=== PATIENT | female | born 1975 | race Caucasian/White ===

== ENCOUNTER 2017-11-20 11:12 | Emergency (ER) | payer BC ==
[2017-11-20] MEDS ORDERED: SODIUM CHLORIDE 0.9% 1,000 ML IV STA (12:16)
[2017-11-20] MEDS ORDERED: SODIUM CHLORIDE 0.9% 500 ML IV STA (12:16)
[2017-11-20] MEDS ORDERED: KETOROLAC 30 MG/ML 1 ML VIAL IVP STA (12:16)
--- NOTE | 2017-11-20 12:19 | ED ---
Back Pain HPI - General Chief Complaint: Back Pain/Injury Stated Complaint: Lower back pain Time Seen by Provider: 11/20/17 12:08 Source: patient, RN notes reviewed Limitations: no limitations - History of Present Illness Initial Comments: This is a 42-year-old female with a history of a bulging disc in one of her lower vertebrae also a history kidney stones and states she had the onset 1 week ago of right-sided flank pain seems to radiate down to the bladder area. She denies any fevers chills nausea vomiting sweats the pain is dull and achy 9/ 10 at this time in severity she's had no dysuria hematuria consultation diarrhea. She denies she was the cause is somewhat feels like her previous kidney stone which she does relate that she was sitting on the bowel a boat prior to the pain starting in having a lot of waves so she's not sure whether it could've been her back that was aggravated or not. It does hurt to flex her hip on the right side. No focal deficits. She has had a tubal ligation the past no other surgeries. No other modifying factors MD Complaint: back pain, other - Related Data Home Medications Medication Instructions Recorded Confirmed Ibuprofen [Motrin] 800 mg PO Q6HR PRN 11/20/17 11/20/17 Levothyroxine Sodium [Synthroid] 125 mcg PO HS 11/20/17 11/20/17 Methocarbamol [Robaxin] 500 mg PO BID PRN 11/20/17 11/20/17 traMADol HCL [Ultram] 50 mg PO TID 11/20/17 11/20/17 Previous Rx's Medication Instructions Recorded Cyclobenzaprine [Flexeril] 10 mg PO TID #14 tab 11/20/17 Ibuprofen 800 mg PO Q6HR PRN #20 tablet 11/20/17 Allergies Allergy/AdvReac Type Severity Reaction Status Date / Time morphine Allergy Rash/Hives Verified 11/20/17 12:23 Review of Systems ROS Statement: Those systems with pertinent positive or pertinent negative responses have been documented in the HPI. ROS Other: All systems not noted in ROS Statement are negative. Past Medical History Past Medical History: Thyroid Disorder Additional Past Medical History / Comment(s): kidney stones bulging disc History of Any Multi-Drug Resistant Organisms: None Reported Additional Past Surgical History / Comment(s): thyroidectomy Past Psychological History: No Psychological Hx Reported Smoking Status: Never smoker Past Alcohol Use History: None Reported, Rare Past Drug Use History: None Reported General Exam - General Exam Comments Initial Comments: This is a well-developed well-nourished awake alert oriented 3 female Limitations: no limitations General appearance: alert, anxious, in distress Head exam: Present: atraumatic, normocephalic, normal inspection Eye exam: Present: normal appearance, PERRL, EOMI. Absent: scleral icterus, conjunctival injection, periorbital swelling ENT exam: Present: normal exam, mucous membranes moist Neck exam: Present: normal inspection. Absent: tenderness, meningismus, lymphadenopathy Respiratory exam: Present: normal lung sounds bilaterally. Absent: respiratory distress, wheezes, rales, rhonchi, stridor Cardiovascular Exam: Present: regular rate, normal rhythm, normal heart sounds. Absent: systolic murmur, diastolic murmur, rubs, gallop, clicks GI/Abdominal exam: Present: soft, normal bowel sounds. Absent: distended, tenderness, guarding, rebound, rigid Extremities exam: Present: normal inspection, full ROM, normal capillary refill. Absent: tenderness, pedal edema, joint swelling, calf tenderness Back exam: Present: normal inspection Neurological exam: Present: alert, oriented X3, CN II-XII intact Psychiatric exam: Present: normal affect, normal mood Skin exam: Present: warm, dry, intact, normal color. Absent: rash Course Vital Signs 11/20/17 11/20/17 11:34 14:52 Temperature 98.2 F 97.1 F L Pulse Rate 92 75 Respiratory 18 15 Rate Blood Pressure 157/97 146/63 O2 Sat by Pulse 99 97 Oximetry - Reevaluation(s) Reevaluation #1: 11/20/17 15:15 The patient will get an off work note for this remaining week. Medical Decision Making - Medical Decision Making I did discuss the findings with the patient including the mass. She does have a mammogram she needs to call for a follow-up to get it done. I did recommend she call today. Be referred back to her physician. At this time the symptoms appear to be consistent with lumbar radiculopathy. - Lab Data Result diagrams: 11/20/17 12:21 11/20/17 12:21 Lab Results 11/20/17 11/20/17 11/20/17 Range/Units 12:21 12:21 12:21 WBC 7.2 (3.8-10.6) k/uL RBC 4.72 (3.80-5.40) m/uL Hgb 14.0 (11.4-16.0) gm/dL Hct 40.6 (34.0-46.0) % MCV 86.1 (80.0-100.0) fL MCH 29.7 (25.0-35.0) pg MCHC 34.5 (31.0-37.0) g/dL RDW 13.2 (11.5-15.5) % Plt Count 277 (150-450) k/uL Neutrophils % 74 % Lymphocytes % 20 % Monocytes % 4 % Eosinophils % 0 % Basophils % 1 % Neutrophils # 5.3 (1.3-7.7) k/uL Lymphocytes # 1.5 (1.0-4.8) k/uL Monocytes # 0.3 (0-1.0) k/uL Eosinophils # 0.0 (0-0.7) k/uL Basophils # 0.0 (0-0.2) k/uL Sodium 143 (137-145) mmol/L Potassium 3.9 (3.5-5.1) mmol/L Chloride 103 (98-107) mmol/L Carbon Dioxide 27 (22-30) mmol/L Anion Gap 13 mmol/L BUN 11 (7-17) mg/dL Creatinine 0.74 (0.52-1.04) mg/dL Est GFR (CKD-EPI)AfAm >90 (>60 ml/min/1.73 sqM) Est GFR (CKD-EPI)NonAf >90 (>60 ml/min/1.73 sqM) Glucose 98 (74-99) mg/dL Calcium 9.5 (8.4-10.2) mg/dL Total Bilirubin 0.5 (0.2-1.3) mg/dL AST 26 (14-36) U/L ALT 32 (9-52) U/L Alkaline Phosphatase 66 (38-126) U/L Total Protein 7.7 (6.3-8.2) g/dL Albumin 4.7 (3.5-5.0) g/dL Amylase 67 (30-110) U/L Lipase 155 (23-300) U/L Urine Color Urine Appearance (Clear) Urine pH (5.0-8.0) Ur Specific [place] (1.001-1.035) Urine Protein (Negative) Urine Glucose (UA) (Negative) Urine Ketones (Negative) Urine Blood (Negative) Urine Nitrite (Negative) Urine Bilirubin (Negative) Urine Urobilinogen (<2.0) mg/dL Ur Leukocyte Esterase (Negative) Urine RBC (0-5) /hpf Urine WBC (0-5) /hpf Ur Squamous Epith Cells (0-4) /hpf Amorphous Sediment (None) /hpf Urine Bacteria (None) /hpf Urine HCG, Qual Not Detected (Not Detectd) 11/20/17 Range/Units 12:21 WBC (3.8-10.6) k/uL RBC (3.80-5.40) m/uL Hgb (11.4-16.0) gm/dL Hct (34.0-46.0) % MCV (80.0-100.0) fL MCH (25.0-35.0) pg MCHC (31.0-37.0) g/dL RDW (11.5-15.5) % Plt Count (150-450) k/uL Neutrophils % % Lymphocytes % % Monocytes % % Eosinophils % % Basophils % % Neutrophils # (1.3-7.7) k/uL Lymphocytes # (1.0-4.8) k/uL Monocytes # (0-1.0) k/uL Eosinophils # (0-0.7) k/uL Basophils # (0-0.2) k/uL Sodium (137-145) mmol/L Potassium (3.5-5.1) mmol/L Chloride (98-107) mmol/L Carbon Dioxide (22-30) mmol/L Anion Gap mmol/L BUN (7-17) mg/dL Creatinine (0.52-1.04) mg/dL Est GFR (CKD-EPI)AfAm (>60 ml/min/1.73 sqM) Est GFR (CKD-EPI)NonAf (>60 ml/min/1.73 sqM) Glucose (74-99) mg/dL Calcium (8.4-10.2) mg/dL Total Bilirubin (0.2-1.3) mg/dL AST (14-36) U/L ALT (9-52) U/L Alkaline Phosphatase (38-126) U/L Total Protein (6.3-8.2) g/dL Albumin (3.5-5.0) g/dL Amylase (30-110) U/L Lipase (23-300) U/L Urine Color Light Yellow Urine Appearance Cloudy H (Clear) Urine pH 6.5 (5.0-8.0) Ur Specific [place] 1.005 (1.001-1.035) Urine Protein Negative (Negative) Urine Glucose (UA) Negative (Negative) Urine Ketones Negative (Negative) Urine Blood Negative (Negative) Urine Nitrite Negative (Negative) Urine Bilirubin Negative (Negative) Urine Urobilinogen <2.0 (<2.0) mg/dL Ur Leukocyte Esterase Moderate H (Negative) Urine RBC 1 (0-5) /hpf Urine WBC 3 (0-5) /hpf Ur Squamous Epith Cells 4 (0-4) /hpf Amorphous Sediment Rare H (None) /hpf Urine Bacteria Occasional H (None) /hpf Urine HCG, Qual (Not Detectd) - Radiology Data Radiology results: report reviewed (I did review the imaging and reports are is evidence of bilateral nonobstructing nephrolithiasis there is evidence of a bulging disc at L4 5 addition there is a 1.4 cm mass seen within the posterior margin of the right breast mammogram is recommended.), image reviewed Disposition Clinical Impression: Lumbar radiculopathy, Nephrolithiasis, Breast mass, right Disposition: HOME SELF-CARE Condition: Good Instructions: Acute Low Back Pain (ED), Lower Back Exercises (ED), Lumbar Radiculopathy (ED), Breast Mass (ED) Additional Instructions: Call for your mammogram today Prescriptions: Cyclobenzaprine [Flexeril] 10 mg PO TID #14 tab Ibuprofen 800 mg PO Q6HR PRN #20 tablet PRN Reason: Pain Is patient prescribed a controlled substance at d/c from ED?: No Referrals: Judson Fox DO [Primary Care Provider] - 1-2 days
[2017-11-20 13:05] LABS: Basophils % (A) 1 %; Eosinophils % (A) 0 %; HCT 40.6 % (34.0-46.0); Lymphocytes # (A) 1.5 k/uL (1.0-4.8); Lymphocytes % (A) 20 %; MCH 29.7 pg (25.0-35.0); MCHC 34.5 g/dL (31.0-37.0); MCV 86.1 fL (80.0-100.0); Mean Platelet Volume 6.8; Monocytes # (A) 0.3 k/uL (0-1.0); Monocytes % (A) 4 %; Neutrophils # (A) 5.3 k/uL (1.3-7.7); Neutrophils % (A) 74 %; Platelet Count 277 k/uL (150-450); RBC 4.72 m/uL (3.80-5.40); RDW 13.2 % (11.5-15.5); WBC 7.2 k/uL (3.8-10.6)
[2017-11-20 13:11] LABS: Amorphous Sediment,Urine Rare /hpf; Appearance,Urine Cloudy (Clear); Bacteria,Urine Occasional /hpf; Bilirubin,Urine Negative (Negative); Blood,Urine Negative (Negative); Color,Urine Light Yellow; Glucose,Urine (UA) Negative (Negative); Ketones,Urine Negative (Negative); Leukocyte Esterase,Urine Moderate (Negative); Nitrite,Urine Negative (Negative); PH, Urine 6.5 (5.0-8.0); Protein,Urine Negative (Negative); RBC,Urine 1 /hpf (0-5); Specific Gravity,Urine 1.005 (1.001-1.035); Squamous Epithelial Cell,Urine 4 /hpf (0-4); Urobilinogen,Urine <2.0 mg/dL (<2.0); WBC,Urine 3 /hpf (0-5)
[2017-11-20 13:12] LABS: ALT 32 U/L (9-52); AST 26 U/L (14-36); Albumin 4.7 g/dL (3.5-5.0); Alkaline Phosphatase 66 U/L (38-126); Amylase 67 U/L (30-110); Anion Gap 13 mmol/L; Blood Urea Nitrogen 11 mg/dL (7-17); Calcium 9.5 mg/dL (8.4-10.2); Carbon Dioxide 27 mmol/L (22-30); Chloride 103 mmol/L (98-107); Glucose 98 mg/dL (74-99); Lipase 155 U/L (23-300); Potassium 3.9 mmol/L (3.5-5.1); Sodium 143 mmol/L (137-145); Total Bilirubin 0.5 mg/dL (0.2-1.3); Total Protein 7.7 g/dL (6.3-8.2)
--- NOTE | 2017-11-20 13:37 | XR ---
EXAMINATION TYPE: XR KUB DATE OF EXAM: 11/20/2017 1:22 PM CLINICAL HISTORY: Right-sided abdominal pain TECHNIQUE: Single supine KUB image of the abdomen is obtained. COMPARISON: 10/20/2010. FINDINGS: There is a 5 mm right-sided renal calculus. Scattered gas is seen in non-distended small hannah wel loops. Gas and fecal material is seen in non-distended colon. There is no visceromegaly, pneumope ritoneum, or abnormal calcification appreciated. There is a levoscoliosis of the lumbar spine. The shaina ng bases are clear and the osseous structures are intact. IMPRESSION: 1. Nonobstructive bowel gas pattern. 2. 5 mm right renal calculus. 3. Levoscoliosis of the lumbar spine.
--- NOTE | 2017-11-20 14:47 | CT ---
EXAMINATION TYPE: CT abdomen pelvis wo con DATE OF EXAM: 11/20/2017 COMPARISON: NONE HISTORY: Rt flank pain CT DLP: 786.7 mGycm Automated exposure control for dose reduction was used. TECHNIQUE: Helical acquisition of images was performed from the lung bases through the pelvis. FINDINGS: LUNG BASES: There is subsegmental consolidation bilaterally greater on the left.. LIVER/GB: There is evidence of cholelithiasis.. PANCREAS: No significant abnormality is seen. SPLEEN: No significant abnormality is seen. ADRENALS: No significant abnormality is seen. KIDNEYS: Right kidney: There are 2 less than 5 mm right renal calculi but no hydronephrosis. Next Left kidney: There are 2 less than 5 mm left renal calculi but no hydronephrosis. URINARY BLADDER: No significant abnormality is seen. ADENOPATHY: None visualized. OSSEOUS STRUCTURES: No significant abnormality is seen. BOWEL: No significant abnormality is seen. OTHER: There is a 1.4 cm mass within the posterior margin of the right breast. Mammogram recommended. Trace amount free fluid in pelvis. Hypertrophic and degenerative changes are seen involving the vert ebral column. There is a slight curvature of the spine. Fat-containing periumbilical hernia noted. IMPRESSION: 1. Bilateral nonobstructing nephrolithiasis. 2. Cholelithiasis. 3 solid-appearing 1.4 cm mass posterior margin right breast. Mammogram strongly recommended. 4 bilate ral subsegmental atelectasis or infiltrate greater on the left.
--- NOTE | 2017-11-20 14:52 | CT ---
EXAMINATION TYPE: CT lumbar spine wo con DATE OF EXAM: 11/20/2017 2:35 PM COMPARISON: MRI lumbar spine 09/19/2012 HISTORY: Rt flank pain CT DLP: 0 mGycm Automated exposure control for dose reduction was used. Unenhanced CT of the lumbar spine was performed. Bone and soft tissue window settings are submitted as well as coronal and sagittal reconstructions. Bilateral nonobstructing nephrolithiasis. L1-L2: Normal disc space height. No disc herniation protrusion or central stenosis. No facet joint arthropathy. No evidence for foraminal encroachment. L2-L3: Normal disc space height. No disc herniation protrusion or central stenosis. No facet joint arthropathy. No evidence for foraminal encroachment. L3-L4: Normal disc space height. No disc herniation protrusion or central stenosis. No facet joint arthropathy. No evidence for foraminal encroachment. L4-L5: Circumferential disc bulging noted. Mild effacement of thecal sac. Facet arthropathy noted. L5-S1: Normal disc space height. No disc herniation protrusion or central stenosis. No facet joint arthropathy. No evidence for foraminal encroachment. IMPRESSION: 1. Bilateral nephrolithiasis. 2. Circumferential disc bulging L4-L5 with mild effacement of thecal sac is similar in appearance to the prior MRI.
[2017-11-20 15:26] VITALS: BP 136/64; PULSE 83; RESP 18; TEMP 97.7
== END 2017-11-20 15:26 | disposition home or self-care (01) ==
LOC: EC 11:12
DX: M54.16 Radiculopathy, lumbar region (principal); N20.0 Calculus of kidney; N63.10 Unspecified lump in the right breast, unspecified quadrant; E07.9 Disorder of thyroid, unspecified; Z79.891 Long term (current) use of opiate analgesic; Z79.899 Other long term (current) drug therapy; Z88.5 Allergy status to narcotic agent
CPT/HCPCS: 36415; 80053; 82150; 83690; 85025; 81001; 81025; 74018; 72131; 74176; 99284; 96374; 96361 ×2; J1885

== ENCOUNTER → 2017-12-25 | Outpatient (CLI) | payer BC ==
--- NOTE | 2017-12-27 09:01 | MM ---
Reason for exam: screening (asymptomatic). Last mammogram was performed 11 years and 7 months ago. History: Benign US right core biopsy of the right breast, May 22, 2007. Physical Findings: A clinical breast exam by your physician is recommended on an annual basis and results should be correlated with mammographic findings. MG Screening Mammo w CAD Bilateral CC and MLO view(s) were taken. No prior studies available for comparison. The breast tissue is heterogeneously dense. This may lower the sensitivity of mammography. There are bilateral masses. Right upper outer quadrant anterior depth 14mm mass. Right upper outer quadrant middle posterior depth 16mm mass. Left lower inner quadrant 23mm mass and left upper outer quadrant 15mm mass. No priors therefore ultrasound will be performed. Right biopsy markers noted. ASSESSMENT: Incomplete: need additional imaging evaluation, BI-RAD 0 RECOMMENDATION: Ultrasound of both breasts. [facility] will attempt to contact patient to return for ultrasound.
== END | disposition home or self-care (01) ==
LOC: RADMAMWWP 14:35
PROVIDERS: ATTEND Obstetrics & Gynecology
DX: Z12.31 Encounter for screening mammogram for malignant neoplasm of breast (principal)
CPT/HCPCS: 77067

== ENCOUNTER → 2018-01-06 | Outpatient (CLI) | payer BC ==
--- NOTE | 2018-01-06 10:49 | USB ---
Reason for exam: additional evaluation requested from abnormal screening. History: Benign US right core biopsy of the right breast, May 22, 2007. Physical Findings: Nurse did not find any significant physical abnormalities on exam. US Breast Workup Limited YULY Right limited breast ultrasound including focal area of concern, retroareolar and axilla demonstrates a 1.7 x 1.1 x 1.5cm solid lesion at 9 o'clock for which a biopsy is recommended and a 1.1 x 0.8 x 1.1cm solid lesion at 10 o'clock for which a biopsy is recommended. Left limited breast ultrasound including focal area of concern, retroareolar and axilla demonstrates a 0.8 x 0.6 x 1.0cm solid lesion at 11 o'clock, a 0.6 x 0.4 x 0.5cm solid lesion at 2 o'clock, a 1.1 x 1.1 x 0.6cm solid lesion at 3 o'clock and a 2.3 x 2.2 x 2.5cm solid lesion at 9 o'clock for which a biopsy is recommended. All of these are circumscribed and hypoechoic. Some show posterior through transmission. These may represent multiple fibroademoas. These results were verbally communicated with the patient and result sheet given to the patient on 01/06/18. ASSESSMENT: Suspicious, BI-RAD 4 RECOMMENDATION: Surgical consultation and ultrasound core biopsy of both breasts. (2 on the right, 9 o'clock and 10 o'clock) (1 on the left, 9 o'clock) Called Dr. Ewing with mammographic findings and has scheduled an appointment for the patient for 02/13/18 at 10:[address] Nava. Biopsy scheduled for 01/20/18 at 8 o'clock. PRELIMINARY REPORT CALLED AND FAXED TO DR. NAVA ON 01/06/18.
== END | disposition home or self-care (01) ==
LOC: RADUSWWP 08:58
PROVIDERS: ATTEND Obstetrics & Gynecology
DX: R92.8 Other abnormal and inconclusive findings on diagnostic imaging of breast (principal)

== ENCOUNTER → 2018-01-20 | Day surgery (SDC) | payer BC ==
[2018-01-20 07:29] VITALS: RESP 16; BMI 34.4
[2018-01-20 09:40] VITALS: BP 127/82; PULSE 75; TEMP 98.3
--- NOTE | 2018-01-20 11:42 | USB ---
EXAMINATION TYPE: US biopsy breast VAD RT (2 site), US biopsy breast VAD LT (one site) Post procedure MG diagnostic mammo BI wo CAD DATE OF EXAM: 01/20/2018 CLINICAL HISTORY: 42-year-old female R92.8 ABN MAMMO. TECHNIQUE: Ultrasound guided core biopsy of right breast (2 sites) and left breast (one site). COMPARISON: 01/06/2018 and 01/20/2018 FINDINGS: The procedure of ultrasound guided core biopsy was explained to the patient. Benefits, alternatives, and risks were discussed. An informed consent was then obtained. The patient was placed in supine positioning for imaging and for the procedure. The overlying skin was prepped and draped in usual sterile fashion. Lidocaine buffered with bicarbonate was used as anesthetic into the skin and subcutaneous tissue up to area of concern in the bilateral breasts in turn. RIGHT: SITE A, 9:00 - Under ultrasound guidance, a 13-gauge vacuum assisted mammotome Elite biopsy gun device was used to obtain 4 core samples. Following this, a wing clip was left in lesion. SITE B, 10:00 - Under ultrasound guidance, a 13-gauge vacuum assisted mammotome Elite biopsy gun device was used to obtain 4 core samples. Following this, a coil clip was left in lesion. LEFT: SITE A, 9:00 - Under ultrasound guidance, a 13-gauge vacuum assisted mammotome Elite biopsy gun device was used to obtain 4 core samples. Following this, a ribbon clip was left in lesion. The patient tolerated the procedure well without any immediate complication. The patient was kept in the radiology department for short stay after the procedure and then discharged home in stable condition. Post procedure mammogram shows clips in place at the site of mammographic masses. There is an old ribbon clip on the right also noted. IMPRESSION: Successful, uncomplicated ultrasound guided core biopsy of bilateral breast masses, 2 on the right and one on the left. Fibroadenomas are suspected. Full pathology results to follow. Note that there are additional masses which were not biopsied but all have a relatively similar ultrasound appearance. Pathology Results: Benign A. 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 B. RIGHT BREAST LESION AT 10:00 POSITION, NEEDLE CORE BIOPSY: Fibroadenoma. C. LEFT BREAST LESION AT THE 9:00 POSITION, NEEDLE CORE BIOPSY: Fibroadenoma. Recommendation Follow up mammogram of both breasts in 6 months as only ambulatory services representative masses in each breast were biopsied. MTDD
== END ==
LOC: RADUSWWP 06:58
PROVIDERS: ATTEND Surgery
DX: D24.1 Benign neoplasm of right breast (principal)
CPT/HCPCS: 88305; 77066; 19083; 19084 ×2; A4648; J2001

== ENCOUNTER → 2019-08-03 | Outpatient (CLI) | payer BC ==
--- NOTE | 2019-08-03 16:26 | US ---
EXAMINATION TYPE: US pelvic complete DATE OF EXAM: 08/03/2019 COMPARISON: None CLINICAL HISTORY: 44-year-old female N94.6 Dysmenorrhea N92.0 Menorrhagia. Pt states 2 months of dysm enorrhea and menorrhagia TECHNIQUE: Transabdominal (TA). FINDINGS: Date of LMP: 07/25/2019 EXAM MEASUREMENTS: Uterus: 8.1 x 4.4 x 5.0 cm Endometrial Stripe: 1.0 cm Right Ovary: 2.9 x 2.5 x 2.5 cm Left Ovary: 2.5 x 1.7 x 1.9 cm 1. Uterus: Anteverted, Heterogeneous, echogenic, 2.0 cm area lower uterine segment, bulky appearin g cervix 2. Endometrium: Thickened for pt's cycle 3. Right Ovary: wnl 4. Left Ovary: wnl 5. Bilateral Adnexa: wnl 6. Posterior cul-de-sac: wnl IMPRESSION: 1. Thickened, echogenic appearance in the region of the cervix/posterior lower uterine segment. Consi majo further evaluation with transvaginal ultrasound scanning, direct visualization/Pap smear, or fema le pelvic MRI. Underlying fibroid change, cervical lesion, or adenomyoma are in the differential.
== END | disposition home or self-care (01) ==
LOC: RADUSWWP 13:31
PROVIDERS: ATTEND Obstetrics & Gynecology
DX: N94.6 Dysmenorrhea, unspecified (principal); N92.0 Excessive and frequent menstruation with regular cycle
CPT/HCPCS: 76856

== ENCOUNTER → 2020-02-08 | Outpatient (CLI) | payer BC ==
[2020-02-08 16:23] LABS: Basophils # (A) 0.1 k/uL (0-0.2); Basophils % (A) 1 %; Eosinophils # (A) 0.1 k/uL (0-0.7); Eosinophils % (A) 2 %; HCT 39.6 % (34.0-46.0); HGB 13.1 gm/dL (11.4-16.0); Lymphocytes # (A) 2.1 k/uL (1.0-4.8); Lymphocytes % (A) 30 %; MCH 29.1 pg (25.0-35.0); MCV 87.9 fL (80.0-100.0); Mean Platelet Volume 7.4; Monocytes # (A) 0.4 k/uL (0-1.0); Monocytes % (A) 6 %; Neutrophils # (A) 4.3 k/uL (1.3-7.7); Neutrophils % (A) 60 %; Platelet Count 229 k/uL (150-450); RDW 12.8 % (11.5-15.5); WBC 7.1 k/uL (3.8-10.6)
[2020-02-09 02:17] LABS: African American GFR (CKD) 102.5 (60.0-200.0); Anion Gap 8.8 mmol/L (4.00-12.00); BUN/Creat Ratio 13.75 Ratio (12.00-20.00); Calcium 9.3 mg/dL (8.7-10.3); Carbon Dioxide 26.2 mmol/L (21.6-31.8); Non-African American GFR(CKD) 88.4 (60.0-200.0)
== END | disposition home or self-care (01) ==
LOC: LABWHC1 14:05
PROVIDERS: ATTEND Obstetrics & Gynecology
DX: Z01.818 Encounter for other preprocedural examination (principal)
CPT/HCPCS: 36415; 80048; 85025

== ENCOUNTER 2020-02-18 05:35 | Day surgery (SDC) | payer BC ==
[2020-02-11 16:05] VITALS: BMI 35.4
[2020-02-18] MEDS ORDERED: HYDROmorphone 0.5 MG/0.5 ML SYRINGE IVP PRN (05:44)
[2020-02-18] MEDS ORDERED: ONDANSETRON 4 MG/2 ML VIAL IVP ONE ×2 (05:44→09:20)
[2020-02-18] MEDS ORDERED: DEXAMETHASONE SOD PHOSPHATE 10 MG/ML 1 ML VIAL IV ONE (05:44)
[2020-02-18] MEDS ORDERED: SCOPOLAMINE 1.5MG/72HR PATCH TRANSDERM ONE (06:30)
[2020-02-18] MEDS: LACTATED RINGERS 1,000 ML IV SCH (06:30)
[2020-02-18] MEDS ORDERED: LIDOCAINE 1% (10MG/ML) FOR IV START INTRADERMA ONE (06:30)
--- NOTE | 2020-02-18 06:45 | P.HPOB ---
History of Present Illness H&P Date: 02/18/20 Chief Complaint: menorrhagia 44-year-old presents for total laparoscopic hysterectomy with da Amanad, diagnostic cystoscopy for menorrhagia, dysmenorrhea and uterine prolapse. Review of Systems All systems: negative Constitutional: Denies chills, Denies fever Eyes: denies blurred vision, denies pain Ears, nose, mouth and throat: Denies headache, Denies sore throat Cardiovascular: Denies chest pain, Denies shortness of breath Respiratory: Denies cough Gastrointestinal: Denies abdominal pain, Denies diarrhea, Denies nausea, Denies vomiting Genitourinary: Denies dysuria, Denies hematuria Musculoskeletal: Denies myalgias Integumentary: Denies pruritus, Denies rash Neurological: Denies numbness, Denies weakness Psychiatric: Denies anxiety, Denies depression Endocrine: Denies fatigue, Denies weight change Past Medical History Past Medical History: Thyroid Disorder Additional Past Medical History / Comment(s): kidney stones, bulging disc. Obstetric history: She's had 3 vaginal deliveries and 1 blighted ovum History of Any Multi-Drug Resistant Organisms: None Reported Additional Past Surgical History / Comment(s): subtotal thyroidectomy, lithotripsy, cystoscopy, tubal ligation, breast biopsy Past Anesthesia/Blood Transfusion Reactions: Motion Sickness, Postoperative Nausea & Vomiting (PONV) Smoking Status: Never smoker - Past Family History Mother Family Medical History: No Reported History Medications and Allergies Home Medications Medication Instructions Recorded Confirmed Type Ibuprofen [Motrin] 800 mg PO Q6HR PRN 11/20/17 02/11/20 History Levothyroxine Sodium [Synthroid] 100 mcg PO DAILY 01/13/18 02/11/20 History Allergies Allergy/AdvReac Type Severity Reaction Status Date / Time morphine Allergy Rash/Hives Verified 02/18/20 05:54 Exam Osteopathic Statement: *. No significant issues noted on an osteopathic structural exam other than those noted in the History and Physical/Consult. Vital Signs Temp Pulse Resp BP Pulse Ox 02/18/20 05:56 98.1 F 86 16 143/71 98 Intake and Output 02/17/20 02/17/20 02/18/20 14:59 22:59 06:59 Other: Weight 91.5 kg Heart: Regular rate and rhythm Lungs: Clear to auscultation bilaterally Abdomen: Soft, nontender Extremities: Negative Homans sign Assessment and Plan (1) Menorrhagia Current Visit: Yes Status: Acute Code(s): N92.0 - EXCESSIVE AND FREQUENT MENSTRUATION WITH REGULAR CYCLE SNOMED Code(s): 608977758 (2) Dysmenorrhea Current Visit: Yes Status: Acute Code(s): N94.6 - DYSMENORRHEA, UNSPECIFIED SNOMED Code(s): 440578539 (3) Prolapse of female pelvic organs Current Visit: Yes Status: Acute Code(s): N81.9 - FEMALE GENITAL PROLAPSE, UNSPECIFIED SNOMED Code(s): 48613639 Plan: Total laparoscopic hysterectomy with da Amanda and diagnostic cystoscopy
[2020-02-18] MEDS ORDERED: PROPOFOL 10 MG/ML 20 ML VIAL IV ONE (07:18)
[2020-02-18] MEDS ORDERED: NEOSTIGMINE 1 MG/ML 10 ML VIAL ONE (07:18)
[2020-02-18] MEDS ORDERED: KETOROLAC 15 MG/ML 1 ML VIAL ONE (07:18)
[2020-02-18] MEDS ORDERED: fentaNYL (PF) 50 MCG/ML 2 ML AMP ONE (07:18)
[2020-02-18] MEDS ORDERED: ROCURONIUM BROMIDE 10 MG/ML 5 ML VIAL IV ONE (07:18)
[2020-02-18] MEDS ORDERED: MIDAZOLAM 2 MG/2 ML VIAL ONE (07:18)
[2020-02-18] MEDS ORDERED: GLYCOPYRROLATE 0.2 MG/ML 2 ML VIAL ONE (07:18)
[2020-02-18] MEDS ORDERED: BUPIVACAINE (PF) 0.25% 30 ML VIAL SQ ONE (08:01)
[2020-02-18] MEDS ORDERED: LACTATED RINGERS 1,000 ML IV ONE (08:43)
--- NOTE | 2020-02-18 09:12 | P.OP ---
Date of Procedure: 02/18/20 Preoperative Diagnosis: 1. Menorrhagia 2. dysmenorrhea 3.pelvic organ prolapse Postoperative Diagnosis: 1. Menorrhagia 2. dysmenorrhea 3.pelvic organ prolapse Procedure(s) Performed: Total laparoscopic hysterectomy using da Amanda with diagnostic cystoscopy Anesthesia: VANESSA Surgeon: Linda Ewing Walking Dragline Oiler #1: Warren Gold Estimated Blood Loss (ml): 20 IV fluids (ml): 1,000 Urine output (ml): 400 Pathology: other (Uterus and cervix) Condition: stable Disposition: PACU Operative Findings: Normal uterus, tubes, ovaries. Evidence of previous tubal ligation. Description of Procedure: Patient taken the operating room where general anesthesia was obtained without difficulty. She is prepped and draped in normal sterile fashion dorsal lithotomy position, legs placed in the Mike stirrups. Weighted speculum placed in the vagina and the anterior lip the cervix was grasped with single-tooth tenaculum. The uterus sounded to 8 cm and the cervix diameter was 3.5 cm. The appropriate manipulator tip and ring were placed on the Leticia manipulator. The Leticia manipulator was then placed in the uterus. Hudson catheter was also placed. Attention was then turned to the abdomen and gloves were changed. A 5 mm supraumbilical incision was made the scalpel and a 5 mm optical trocar was placed under direct visualization. 10 cm to the right of this and 2 cm down a 5 mm incision was made and 8 mm da Amanda port was placed under direct visualization. Same measurements on the opposite side of the patient's abdomen, the 5 mm incision was made and 8 mm da Amanda port was placed under direct visualization. In the left upper quadrant a 10 mm incision was made and a 10 mm optical trocar was placed under direct visualization. The 5 mm optical trocar was then replaced with the 8 mm da Amanda camera port. The robot was docked on patient's right side. The camera was introduced and then the monopolar curved scissor and [place] bipolar placed under direct visualization. I broke scrub and went to the physician console. The left utero-ovarian ligament was cauterized with the [place] bipolar and cut with monopolar curved scissors. The left round ligament was cauterized with the [place] bipolar and cut with monopolar curved scissors. The posterior leaf of the broad ligament was taken down using the monopolar curved scissors. Anterior leaf of the broad ligament was then taken down using the monopolar curved scissors. The uterine artery was cauterized with the [place] bipolar and cut with monopolar curved scissors. The bladder flap was then started using the monopolar curved scissors. Attention was then turned to the right side of the patient's anatomy and the right utero-ovarian ligament was cauterized with the [place] bipolar and cut with monopolar curved scissors. The right round ligament was cauterized with the [place] bipolar and cut with monopolar curved scissors. Posterior leaf of the broad ligament was taken down using the monopolar curved scissors and the anterior leaf was taken down using the monopolar curved scissors. The uterine artery was cauterized the [place] bipolar cut with monopolar curved scissors. The bladder flap was then finished on this side. Anterior colpotomy was made using the monopolar curved scissors. The rest of the uterus was from the vaginal cuff by following the ring around with the monopolar curved scissors through the uterosacral ligaments back to the anterior portion. Once the uterus and cervix were amputated they were pulled through the vaginal cuff. Hemostasis was assured. The instruments were changed for the Cardier forcep and the lou suture cut. The vaginal cuff was then closed using O stratafix barbed suture in a running fashion. Hemostasis was again assured and the pelvis was irrigated. All instruments were removed from the abdomen and the robot was undocked. I scrubbed back in to perform a cystoscopy. There were jets from both ureteral orifices. The abdominal incisions were closed with 4-0 Vicryl in a subcuticular fashion. Patient tolerated the procedure well, sponge and instrument counts correct 2 and she was taken to recovery room in stable condition condition
[2020-02-18] MEDS ORDERED: HYDROmorphone 1 MG/ML 1 ML SYRINGE IVP ONE ×3 (09:22→09:40)
[2020-02-18] MEDS ORDERED: SODIUM CHLORIDE 0.9% 1,000 ML IV ONE (09:40)
[2020-02-18] MEDS ORDERED: KETOROLAC 15 MG/ML 1 ML VIAL IVP PRN (09:55)
[2020-02-18] MEDS ORDERED: Acetaminophen-Codeine 300-30mg TAB PO PRN (09:55)
[2020-02-18] MEDS ORDERED: SIMETHICONE 80 MG CHEWABLE PO PRN (09:55)
[2020-02-18] MEDS ORDERED: ONDANSETRON 4 MG/2 ML VIAL IVP PRN (09:55)
[2020-02-18] MEDS ORDERED: IBUPROFEN 600 MG TAB PO PRN (09:55)
[2020-02-18] MEDS ORDERED: ZOLPIDEM 5 MG TAB PO PRN (09:55)
[2020-02-18 15:48] VITALS: RESP 18
[2020-02-18] MEDS: Acetaminophen-Codeine 300-30mg TAB PO PRN ×2 (18:32→22:42)
[2020-02-18] MEDS: SENNOSIDES-DOCUSATE SODIUM 1 EACH TAB PO SCH (20:12)
[2020-02-19] MEDS: Acetaminophen-Codeine 300-30mg TAB PO PRN (06:46)
[2020-02-19] MEDS: LACTATED RINGERS 1,000 ML IV SCH (06:46)
[2020-02-19 07:10] LABS: Basophils % (A) 0 %; Eosinophils # (A) 0.3 k/uL (0-0.7); Eosinophils % (A) 3 %; HCT 33.6 % (34.0-46.0); Lymphocytes # (A) 1.1 k/uL (1.0-4.8); Lymphocytes % (A) 11 %; MCH 29.3 pg (25.0-35.0); MCHC 32.7 g/dL (31.0-37.0); MCV 89.5 fL (80.0-100.0); Mean Platelet Volume 7.3; Monocytes # (A) 0.5 k/uL (0-1.0); Monocytes % (A) 5 %; Neutrophils # (A) 8.4 k/uL (1.3-7.7); Neutrophils % (A) 81 %; Platelet Count 251 k/uL (150-450); RBC 3.75 m/uL (3.80-5.40); RDW 13.1 % (11.5-15.5); WBC 10.5 k/uL (3.8-10.6)
--- NOTE | 2020-02-19 07:57 | P.DS ---
Providers Expected date of discharge: 02/19/20 Attending physician: Linda Ewing Primary care physician: Judson Fox - Discharge Diagnosis(es) (1) Menorrhagia Current Visit: Yes Status: Resolved (2) Dysmenorrhea Current Visit: Yes Status: Resolved (3) Prolapse of female pelvic organs Current Visit: Yes Status: Resolved Hospital Course: Patient presented for total laparoscopic hysterectomy due to menorrhagia, dysmenorrhea and uterine prolapse. She underwent this procedure without complication. Postoperatively her pain is well-controlled, she is tolerating a diet, she's passing flatus and voiding without difficulty. She'll be discharged home postoperative day #1 in stable condition to follow-up with me in 3 weeks. Plan - Discharge Summary Discharge Rx Participant: Yes New Discharge Prescriptions: New Ibuprofen [Motrin] 600 mg PO Q6HR PRN #30 tab PRN Reason: Mild Discomfort Acetaminophen-Codeine 300-30mg [Tylenol w/codeine #3] 2 each PO Q6HR PRN #24 tab PRN Reason: Severe Pain No Action Ibuprofen [Motrin] 800 mg PO Q6HR PRN PRN Reason: Pain Levothyroxine Sodium [Synthroid] 100 mcg PO DAILY Discharge Medication List Ibuprofen [Motrin] 800 mg PO Q6HR PRN 11/20/17 [History] Levothyroxine Sodium [Synthroid] 100 mcg PO DAILY 01/13/18 [History] Acetaminophen-Codeine 300-30mg [Tylenol w/codeine #3] 2 each PO Q6HR PRN #24 tab 02/19/20 [Rx] Ibuprofen [Motrin] 600 mg PO Q6HR PRN #30 tab 02/19/20 [Rx] Follow up Appointment(s)/Referral(s): Linda Ewing DO [Doctor of Osteopathic Medicine] - 3 Weeks Patient Instructions/Handouts: *Surgery [facility] - Scopalamine Patch Instructions Discharge Disposition: HOME SELF-CARE
[2020-02-19] MEDS: SENNOSIDES-DOCUSATE SODIUM 1 EACH TAB PO SCH (08:22)
[2020-02-19 08:32] VITALS: BP 109/68; PULSE 68; TEMP 97.9
[2020-02-19] MEDS ORDERED: LEVOTHYROXINE 100 MCG TAB PO SCH (22:00)
== END 2020-02-19 09:45 | disposition home or self-care (01) ==
LOC: OR 05:35 → 6PED 08:47 → OR 02-19 09:45
PROVIDERS: ATTEND Obstetrics & Gynecology
DX: N80.0 Endometriosis of uterus (principal); N81.4 Uterovaginal prolapse, unspecified; N92.0 Excessive and frequent menstruation with regular cycle; N94.6 Dysmenorrhea, unspecified; Z87.442 Personal history of urinary calculi; Z98.51 Tubal ligation status; Z98.890 Other specified postprocedural states; Z79.890 Hormone replacement therapy; Z88.5 Allergy status to narcotic agent
CPT/HCPCS: 58570; S2900; 81025; 85025; 86850; 86900; 86901; 88307